=== PATIENT | female | born 1960 | race Caucasian/White ===

== ENCOUNTER 2016-05-04 07:41 | Day surgery (SDC) | payer OTHER ==
[~2016-05-04] VITALS: Ht 157.5 cm; Wt 54.4 kg
[~2016-05-04 07:41] MED LIST: 0.9% Sodium Chloride 1,000 ML IV SCH; CHOL100043 PO; CYAN500T53 SL; OMEG-38 PO; Sodium Chloride LOK Flush 10 mL Syringe IV PRN; fentaNYL-PF 50 mCg/mL 2 mL Inj IVPUSH PRN
[2016-05-04 08:05] VITALS: BP 126/72; PULSE 75; RESP 19; O2SAT 96
[2016-05-04 09:23] VITALS: BP 117/75; PULSE 75; O2SAT 95
[2016-05-04 09:33] VITALS: BP 116/71; PULSE 80; O2SAT 96
--- NOTE | 2016-05-04 10:01 | ENDO ---
[address] [address] ENDOSCOPY PROCEDURE PATIENT: DANISH BELTRAN : 1960 MR#: [id number] ADMIT: 05/04/2016 JOB ID: [id number] DATE: 05/04/2016 PROCEDURE: Colonoscopy. INDICATIONS: A 55-year-old female who reports for colon cancer screening. EQUIPMENT: PCF H 180 AL. SEDATION: 1. 5 mg Versed. 2. 125 mcg fentanyl. COMPLICATIONS: None identified. BOWEL PREPARATION: Excellent. PROCEDURAL INFORMATION: After the risks and benefits were explained, written and verbal informed consent was obtained. The patient was brought into the endoscopy suite and placed into the left lateral decubitus position. Sedation was achieved using the above-stated medications with the addition of oxygen via nasal cannula. A digital rectal examination was accomplished. No significant pathology appreciated. The scope was introduced into the rectum and advanced under direct visualization to the level of the cecum, as identified by the appendiceal orifice and ileocecal valve. The scope was slowly withdrawn to carefully examine the mucosa for any defects or lesions. Retroflexed views were avoided in the rectum. Multiple direct views were made through the dentate line for exclusion of pathology. The colon was decompressed. The scope removed from the patient who tolerated the procedure well. FINDINGS: No significant polyps, mass lesions, or inflammatory features identified throughout. ENDOSCOPIC DIAGNOSES: Visually normal-appearing colonoscopy. RECOMMENDATIONS: Repeat colonoscopy 10 years' time, sooner should symptoms warrant.
== END 2016-05-04 23:59 | disposition home or self-care (01) ==
LOC: END 07:41
PROVIDERS: ATTEND Internal Medicine Gastroenterology
DX: Z12.11 Encounter for screening for malignant neoplasm of colon (principal); F41.9 Anxiety disorder, unspecified; Z79.890 Hormone replacement therapy
CPT/HCPCS: 99153; G0121; G0500; J2250; J7030